=== PATIENT | female | born 1990 | race Hispanic/Latino ===

== ENCOUNTER 2018-02-19 07:55 | Inpatient (IN) | payer MEDICAID ==
[2018-02-19] MEDS ORDERED: LACTATED RINGERS 1000ML 1,000 ML IV PRN (08:06)
[2018-02-19] MEDS ORDERED: OXYTOCIN 10 USP UNITS/ML 20 UNIT in LACTATED RINGERS 1000ML 1,000 ML IV SCH (08:15)
[2018-02-19] MEDS ORDERED: OXYTOCIN-LR 20 UNITS/1000 ML 1,000 ML IV SCH (08:15)
[2018-02-19] MEDS ORDERED: MEPERIDINE-PF 25 MG/ML SYG ONE (08:39)
[2018-02-19] MEDS ORDERED: PROMETHAZINE HCL 25 MG/ML 1ML AMPULE IM ONE (08:39)
[2018-02-19] MEDS ORDERED: OXYTOCIN 10 USP UNITS/ML ONE (08:40)
[2018-02-19] MEDS ORDERED: LIDOCAINE HCL 1% 20 ML VIAL ONE (08:40)
[2018-02-19] MEDS ORDERED: PROMETHAZINE HCL 25 MG/ML 1ML AMPULE IM SCH (08:45)
[2018-02-19] MEDS ORDERED: MEPERIDINE-PF 25 MG/ML SYG IVP SCH (08:45)
[2018-02-19 08:46] LABS: HEMATOCRIT 34.6 % (36-48); MEAN CORPUSCULAR HEMOGLOBIN 32.1 pg (27.0-33.0); MEAN CORPUSCULAR HGB CONC 35.1 g/dL (32.0-36.0); MEAN CORPUSCULAR VOLUME 91.4 fL (79-99); PLATELET COUNT (AUTO) 287 K/uL (130-400); RED BLOOD CELL COUNT(AUTO) 3.79 MIL/uL (4.00-5.50); RED CELL DISTRIBUTION WIDTH 12.7 % (11.0-15.5); WHITE BLOOD COUNT (AUTO) 6.3 K/uL (4.8-10.8)
[2018-02-19] MEDS ORDERED: LANOLIN 30GM OINTMENT TP PRN (09:15)
[2018-02-19] MEDS ORDERED: ACETAMINOPHEN-CODEINE 300/30MG TAB PO PRN (09:15)
[2018-02-19] MEDS ORDERED: WITCH HAZEL 1 PAD TP PRN (09:15)
[2018-02-19] MEDS ORDERED: BENZOCAINE/LANOLIN/ALOE VERA 60 ML AEROSOL TP PRN (09:15)
[2018-02-19 15:07] VITALS: BP 112/75
[2018-02-19 16:33] VITALS: BP 99/66
[2018-02-19 20:15] VITALS: BP 106/58
[2018-02-19] MEDS: DOCUSATE SODIUM 100 MG CAP PO SCH (20:17)
[2018-02-19] MEDS: IBUPROFEN 800 MG TAB PO PRN (20:19)
[2018-02-19 23:15] VITALS: BP 110/66
[2018-02-20 03:35] VITALS: BP 105/62
[2018-02-20 06:09] LABS: HEPATITIS Bs ANTIGEN SCREEN P Negative (Negative)
[2018-02-20 07:55] VITALS: BP 116/72
[2018-02-20] MEDS: DOCUSATE SODIUM 100 MG CAP PO SCH (07:57)
[2018-02-20] MEDS: IBUPROFEN 800 MG TAB PO PRN (07:58)
[2018-02-20 12:22] VITALS: BP 126/61
== END 2018-02-20 13:15 | disposition home or self-care (01) | DRG 560 ==
LOC: LDH 07:55 → INTOOBSV 07:55 → OBSVTOIN 07:55 → WSH 16:29
PROVIDERS: ADMIT Specialist; ATTEND Specialist
PROC: 10E0XZZ Delivery of Products of Conception, External Approach (ICD-10-PCS; principal; 2018-02-19)
PROC: 10907ZC Drainage of Amniotic Fluid, Therapeutic from Products of Conception, Via Natural or Artificial Opening (ICD-10-PCS; 2018-02-19)
DX: O80 Encounter for full-term uncomplicated delivery (principal); Z37.0 Single live birth; Z3A.39 39 weeks gestation of pregnancy
CPT/HCPCS: 36415; 85027; 86592; 86850; 86900; 86901; 87340; J2175; J2550; J2590; J7120

== ENCOUNTER 2020-05-31 06:16 | Inpatient (IN) | payer MEDICAID ==
[~2020-05-31] VITALS: Ht 165.1 cm; Wt 63.5 kg
[2020-05-31] MEDS ORDERED: LACTATED RINGERS 1000ML 1,000 ML IV PRN (06:33)
[2020-05-31 07:13] LABS: APPEARANCE,URINE Clear (CLEAR); BILIRUBIN,URINE Negative (NEGATIVE); COLOR,URINE Dark Yellow (YELLOW); GLUCOSE, URINE (UA) Negative (NEGATIVE); KETONES,URINE Trace mg/dL (NEGATIVE); LEUKOCYTE ESTERASE ,URINE Trace (NEGATIVE); NITRATE,URINE Negative (NEGATIVE); OCCULT BLOOD,URINE Negative (NEGATIVE); PH,URINE 6.5 (5.0-8.0); PROTEIN,URINE Trace mg/dL (NEGATIVE)
[2020-05-31 07:29] LABS: HEMATOCRIT 32.3 % (36-48); MEAN CORPUSCULAR HEMOGLOBIN 31.1 pg (27.0-33.0); MEAN CORPUSCULAR HGB CONC 33.1 g/dL (32.0-36.0); MEAN CORPUSCULAR VOLUME 93.9 fL (79-99); RED BLOOD CELL COUNT(AUTO) 3.44 MIL/uL (4.00-5.50); RED CELL DISTRIBUTION WIDTH 13.4 % (11.0-15.5)
[2020-05-31] MEDS ORDERED: NALOXONE HCL 0.4 MG/1 ML ML IV PRN (07:45)
[2020-05-31] MEDS ORDERED: EPHEDRINE SULFATE 50 MG/ML AMPULE IVP PRN (07:45)
[2020-05-31] MEDS ORDERED: ROPIVACAINE 0.2% 100ML VIAL 100 ML EP SCH (07:45)
[2020-05-31] MEDS ORDERED: OXYTOCIN 10 USP UNITS/ML 20 UNIT in LACTATED RINGERS 1000ML 1,000 ML IV SCH (07:45)
[2020-05-31] MEDS ORDERED: LACTATED RINGERS 500 ML 500 ML IV PRN (07:45)
[2020-05-31] MEDS ORDERED: OXYTOCIN-LR 20 UNITS/1000 ML 1,000 ML IV SCH ×2 (07:45→11:45)
[2020-05-31 07:49] LABS: BACTERIA,URINE Rare /HPF (None Seen); MUCUS,URINE Moderate LPF (None Seen); RBC,URINE 0-1 /HPF (0-1); SQUAMOUS EPITHELIAL CELL,UR Few /HPF (0-2)
[2020-05-31] MEDS ORDERED: FENTANYL CITRATE PF 50 MCG/1 ML 2ML VIAL ONE (08:30)
[2020-05-31] MEDS ORDERED: ACETAMINOPHEN 325 MG TAB PO PRN (11:45)
[2020-05-31] MEDS ORDERED: MEASLES/MUMPS/RUBELLA VACCINE, LIVE 0.5 ML/VIAL SQ PRN (11:45)
[2020-05-31] MEDS ORDERED: ACETAMINOPHEN-CODEINE 300/30MG TAB PO PRN (11:45)
[2020-05-31] MEDS ORDERED: BENZOCAINE/LANOLIN/ALOE VERA 60 ML AEROSOL TP PRN (11:45)
[2020-05-31] MEDS ORDERED: WITCH HAZEL 1 PAD TP PRN (11:45)
[2020-05-31] MEDS ORDERED: LANOLIN 30GM OINTMENT TP PRN (11:45)
[2020-05-31] MEDS ORDERED: DIPH,PERTUSS(ACELL),TET VAC/PF 0.5 ML VIAL IM PRN (11:45)
[2020-05-31 13:17] VITALS: BP 126/76
[2020-05-31] MEDS: IBUPROFEN 600 MG TABLET PO PRN (15:03)
[2020-05-31 16:19] VITALS: BP 122/76
[2020-05-31 19:44] VITALS: BP 109/75
[2020-05-31] MEDS: DOCUSATE SODIUM 100 MG CAP PO SCH (21:10)
[2020-06-01 00:06] VITALS: BP 116/79
[2020-06-01] MEDS: IBUPROFEN 600 MG TABLET PO PRN (04:17)
[2020-06-01 04:18] VITALS: BP 127/77
[2020-06-01 06:11] LABS: HEPATITIS Bs ANTIGEN SCREEN P Negative (Negative)
[2020-06-01 07:55] VITALS: BP 121/64
[2020-06-01] MEDS: DOCUSATE SODIUM 100 MG CAP PO SCH (08:10)
--- NOTE | 2020-06-01 09:50 | NUR ---
DR. KABA ROUNDED AND DISCHARGED PATIENT TO HOME. PATIENT IS STABLE AND DENIES ANY PROBLEMS. WAS INSTRUCTED TO FOLLOW UP IN CLINIC IN ONE WEEK.
--- NOTE | 2020-06-01 11:55 | NUR ---
DISCHARGE INSTRUCTIONS GIVEN AND PATIENT INSTRUCTED ON USE OF MOTRIN [id number] FOR UTERINE CRAMPING AND VERBALIZED UNDERSTANDING INSTRUCTIONS GIVEN.
[2020-06-01 12:00] VITALS: BP 121/64
--- NOTE | 2020-06-01 12:30 | NUR ---
PATIENT WAS DISCHARGED TO HER FAMILY WITH BABY AND WAS TAKEN VIA W/C CARRYING BABY IN ARMS TO FAMILY VEHICLE. PATIENT REMAINS STABLE AND VITAL SIGNS ARE STABLE.
== END 2020-06-01 12:30 | disposition home or self-care (01) | DRG 560 ==
LOC: LDH 06:16 → WSH 13:10
PROVIDERS: ADMIT Specialist; ATTEND Specialist
PROC: 10E0XZZ Delivery of Products of Conception, External Approach (ICD-10-PCS; principal; 2020-05-31)
PROC: 3E0R3BZ Introduction of Anesthetic Agent into Spinal Canal, Percutaneous Approach (ICD-10-PCS; 2020-05-31)
PROC: 00HU33Z Insertion of Infusion Device into Spinal Canal, Percutaneous Approach (ICD-10-PCS; 2020-05-31)
PROC: 3E0234Z Introduction of Serum, Toxoid and Vaccine into Muscle, Percutaneous Approach (ICD-10-PCS; 2020-05-31)
PROC: 3E0134Z Introduction of Serum, Toxoid and Vaccine into Subcutaneous Tissue, Percutaneous Approach (ICD-10-PCS; 2020-05-31)
DX: O80 Encounter for full-term uncomplicated delivery (principal); Z37.0 Single live birth; Z23 Encounter for immunization; Z3A.38 38 weeks gestation of pregnancy
CPT/HCPCS: 36415; 81001; 85027; 86592; 86850; 86900; 86901; 87340; A4314; A4606; G0378; J2590; J2795; J3010; J7120